=== PATIENT | female | born 1985 | race Caucasian/White ===

== ENCOUNTER 2023-11-20 10:27 | Outpatient (CLI) | payer BC, SELFPAY | END 2023-11-20 10:28 | disposition home or self-care (01) | PROVIDERS: Visit Provider Physician Assistant Medical | DX: Z00.00 Encounter for general adult medical examination without abnormal findings (principal); N92.0 Excessive and frequent menstruation with regular cycle; F41.9 Anxiety disorder, unspecified; Z13.6 Encounter for screening for cardiovascular disorders | CPT/HCPCS: 80053; 80061; 84443 ==

== ENCOUNTER 2023-12-02 12:38 | Outpatient (CLI) | payer BC, SELFPAY ==
--- OUTSIDE RECORDS SUMMARY | 2023-12-02 12:41 | XMS_ITS | Continuity of Care Document ---
[place] [id number] Problems Condition ICD9 code ICD10 code SNOMED code Start Date End Date S tatus Encounter for general adult medical examination without abnormal findings Z00.00 Final Excessive and frequent menstruation with regular cycle N92.0 Final Encounter for general adult medical examination without abnormal findings Z00.00 Admitti ng Results No Results Allergies, adverse reactions, alerts No known allergies and adverse reactions Medications No administered medications reported Vital Signs No vital signs reported Social History No smoking Hx information available
--- NOTE | 2023-12-02 13:00 | MM_ITS ---
Patient: MOON HITCHCOCK Facility:?[facility] Patient ID:?[id number] Site Patient ID:?[id number]. Site :?[id number] Study:?XRay-Breast Bilateral 3D W/CAD-12/02/2023 1:10:31 PM Ordering Physician:Pedro Final Report: BILATERAL SCREENING MAMMOGRAM WITH COMPUTER-AIDED DETECTION AND TOMOSYNTHESIS TECHNIQUE: CC and MLO views were obtained. These mammographic images have been obtained using full-field digital technique. These mammographic images were interpreted with the benefit of computer-aided detection. Breast Tomosynthesis was used in this interpretation. COMPARISON FILM: Baseline. FINDINGS: There are scattered areas of fibroglandular density. IMPRESSION: There is no radiographic evidence for malignancy. ASSESSMENT: BI-RADS Category 2: Benign RECOMMENDATION: Routine screening mammogram in 1 year. A lay language report of this examination will be provided to the patient. Brennan Wright M.D. Diagnostic Radiologist [email or web address] DSM/sp R& Transcribed: 2:03 p.m. SP/Dictated by: Brennan Wright MD @ 12/03/2023 11:24:00 AM Signed by:?Brennan Wright MD @12/03/2023 3:20:04 PM (Electronic Signature)
== END 2023-12-02 12:39 | disposition home or self-care (01) ==
LOC: MAMMO 12:39
PROVIDERS: Visit Provider Physician Assistant Medical
DX: Z12.31 Encounter for screening mammogram for malignant neoplasm of breast (principal)
CPT/HCPCS: 77063; 77067